=== PATIENT | male | born 1945 | race Caucasian/White ===

== ENCOUNTER 2022-07-12 11:24 | Day surgery (SDC) | payer OTHER ==
--- NOTE | 2022-07-08 15:15 | RAD REPORT ---
EXAM DESCRIPTION: RAD - Chest Pa And Lat (2 Views) - 07/08/2022 3:10 pm CLINICAL HISTORY: Pre op pending space oar injection Chest pain. COMPARISON: No comparisons FINDINGS: The lungs are clear. The heart is upper limit normal in size. No displaced fractures. IMPRESSION: No acute or concerning finding suspected.
[2022-07-08 15:59] LABS: Absolute Lymphocytes (CBC) 1.6 K/uL (0.7-4.9); Hematocrit 39.2 % (39.6-49.0); Lymphocytes % 20.3 % (15.3-44.8); MCV 88.4 fL (80-100); MPV 9.1 fL (7.6-11.3); RBC Red Blood Cell Count 4.43 M/uL (4.33-5.43)
[2022-07-08 16:01] LABS: Protime INR 1.04
[2022-07-08 16:19] LABS: Potassium 4.3 mmol/L (3.5-5.1)
[2022-07-08 16:46] LABS: SARS-CoV-2 Antigen Rapid Res Negative (Negative)
[2022-07-08 17:59] LABS: Urine Bilirubin NEGATIVE (Negative); Urine Clarity Clear (Clear); Urine Color Yellow (Yellow); Urine Glucose Negative (Negative)
[2022-07-08 18:00] LABS: Urine Blood Negative (Negative); Urine Protein Negative (Negative); Urine Urobilinogen 0.2 mg/dL (0.2-1.0)
[~2022-07-12 11:24] MED LIST: CLINDAMYCIN 600MG/D5W 600 MG/50 ML BAG IV SCH; Gentamicin Inj 240 MG in NA CHLORIDE 0.9% 100 ML IV SCH
[2022-07-12] MEDS ORDERED: NA CHLORIDE 0.9% 1,000 ML ONE (11:53)
--- NOTE | 2022-07-12 14:38 | EKG ---
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
[2022-07-12] MEDS ORDERED: propofoL 200 MG/20 ML VIAL IV ONE (16:39)
[2022-07-12] MEDS ORDERED: KETOROLAC 30 MG/ML INJ ONE (16:41)
[2022-07-12] MEDS ORDERED: FENTANYL CITR 100 MCG/2 ML ONE (16:41)
[2022-07-12] MEDS ORDERED: LIDOCAINE 1% MPF 5 ML VIAL ONE (16:42)
[2022-07-12] MEDS ORDERED: ONDANSETRON 4 MG/2 ML VIAL ONE (16:42)
[2022-07-12 17:34] VITALS: O2SAT 99
[2022-07-12 18:28] VITALS: BP 153/67; TEMP 96.8
--- NOTE | 2022-07-13 08:01 | OP ---
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 Procedures: 1.Transrectal ultrasound-guided fiducial markers placement, two. 2.Transrectal ultrasound guidance for SpaceOAR gel insertion. Indication For Procedure: Mr. Wyatt presented to the [facility]rology [facility] with an elevated PSA and unde rwent a prostate biopsy revealing [place] 4 + 4 adenocarcinoma of the prostate. He was initiated on androgen deprivation therapy targeting 2 years of therapy and planning IMRT. Fiducial markers and Sp aceOAR gel insertion was requested. Procedure In Detail: The patient was consented in the preoperative holding area before being transfe rred to the operative suite where general anesthesia was induced. He was given Ancef 2 g IV antimicr obial prophylaxis and Pneumoboots were provided for DVT prophylaxis. He was placed in the lithotomy position, padded and secured to the table appropriately. His genitalia were elevated out of his elisabet lisa region using an Ioban, and the perineum was prepped with Betadine. A transrectal ultrasound pro be was inserted under direct vision and the prostate and seminal vesicles were visualized. Visualiza tion was performed in the axial as well as sagittal dimensions, and the procedure was begun by insert ing a fiducial marker in the left anterior mid gland of the prostate. A second fiducial marker was p laced in the right apical region of the prostate laterally. I then inserted a needle with the bevel down into the perineum and navigated the needle tip beyond the rectal stump into the space of Denonvi llier's. Once I reached the mid zone of the prostate, which was confirmed in the axial as well as sa gittal dimensions, I then aspirated and received no blood. I then injected a puff of saline and it d id hydrodissect the area appropriately. As a result, I connected the SpaceOAR gel components and inj ected the gel creating a nice space from the base to the apex of the prostate, the prostat e from the rectum. The patient was then taken out of the lithotomy position, the transrectal ultraso und probe was removed from his rectum, and he was transferred to a stretcher after being awakened fro m general anesthesia. He was then transferred to the recovery room in good condition. Complications: None. Discharge Disposition: He should schedule followup with me in the Urology Clinic in 3-6 months after completion of radiation therapy or he may be seen sooner if he has any problems of urologic nature a ssociated with the radiation therapeutic administration. BENJAMIN/LIA Voice ID: [id number] Report ID: [id number]
== END 2022-07-12 18:25 | disposition home or self-care (01) ==
LOC: OR 11:24
PROVIDERS: ATTEND Urology
PROC: 0VH43YZ Insertion of Other Device into Prostate and Seminal Vesicles, Percutaneous Approach (ICD-10-PCS; principal; 2022-07-12 16:30)
DX: C61 Malignant neoplasm of prostate (principal); I10 Essential (primary) hypertension; E78.5 Hyperlipidemia, unspecified; E11.9 Type 2 diabetes mellitus without complications; Z20.822 Contact with and (suspected) exposure to COVID-19
CPT/HCPCS: 36415; 71046; 80048; 81003; 82947; 85025; 85610; 87811; 93005; J1580; J2001; J2405; J2704; J3010; J7030